=== PATIENT | male | born 1955 | race Asian ===

== ENCOUNTER 2019-09-05 06:00 | Day surgery (SDC) | payer OTHER ==
[~2019-09-05] VITALS: Ht 157.5 cm; Wt 65.8 kg
[2019-09-05] MEDS ORDERED: LOSA25TA43 PO (07:09)
[2019-09-05] MEDS ORDERED: ORE25 PO (07:09)
[2019-09-05] MEDS ORDERED: ATOR40TA PO (07:09)
[2019-09-05] MEDS ORDERED: fentaNYL 0.05 MG/ML VIAL ONE (07:14)
[2019-09-05] MEDS ORDERED: MIDAZOLAM 2 MG/2 ML VIAL ONE (07:15)
[2019-09-05] MEDS ORDERED: LIDOCAINE 2% 100 MG/5 ML UJET TP ONE (07:15)
[2019-09-05] MEDS ORDERED: MIDAZOLAM 2 MG/2 ML VIAL IVP ONE (08:05)
[2019-09-05] MEDS ORDERED: fentaNYL 0.05 MG/ML VIAL IVP ONE (08:05)
== END 2019-09-05 08:43 | disposition home or self-care (01) ==
LOC: MDS 06:00 → MMU 06:11 → MDS 08:43
PROVIDERS: ATTEND Internal Medicine Gastroenterology
DX: K92.1 Melena (principal); K26.9 Duodenal ulcer, unspecified as acute or chronic, without hemorrhage or perforation; K29.70 Gastritis, unspecified, without bleeding; D50.9 Iron deficiency anemia, unspecified; R53.82 Chronic fatigue, unspecified; I10 Essential (primary) hypertension; E78.5 Hyperlipidemia, unspecified; F32.9 Major depressive disorder, single episode, unspecified; Z79.82 Long term (current) use of aspirin; Z79.899 Other long term (current) drug therapy
CPT/HCPCS: 36415; 43239; 86677; J2250; J3010